=== PATIENT | female | born 1935 | race Caucasian/White ===

== ENCOUNTER 2018-06-13 15:41 | Day surgery (SDC) | payer MEDICARE, BC ==
[2018-06-13] MEDS ORDERED: DIPHENHYDRAMINE HCL 50 MG/ML VIAL ONE (16:55)
[2018-06-13] MEDS ORDERED: ONDANSETRON HCL INJ/PF 4 MG/2 ML SDV ONE (16:55)
[2018-06-13] MEDS ORDERED: EPINEPHRINE INJ 1 MG/10 ML DISP.SYRIN ONE (16:56)
[2018-06-13] MEDS ORDERED: NALOXONE HCL INJ/PF 0.4 MG/1 ML SDV ONE (16:56)
[2018-06-13] MEDS ORDERED: GLUCAGON,HUMAN RECOMB 1 MG INJ ONE (16:56)
[2018-06-13] MEDS ORDERED: FLUMAZENIL INJ 0.5 MG/5 ML VIAL ONE (16:56)
[2018-06-13] MEDS: MIDAZOLAM 2 MG/2 ML INJ ONE ×3 (17:25→17:44)
[2018-06-13] MEDS: FENTANYL CITRATE INJ/PF 100 MCG/2 ML AMPUL ONE ×2 (17:27→17:29)
--- NOTE | 2018-06-13 18:01 | Operative Report ---
Operative Report DATE OF SURGERY: 06/13/18 Operative Report: Pre-op diagnosis: Iron deficiency anemia with abnormal capsule endoscopy. Possible AVMs in the duodenum and proximal jejunum Post-op diagnosis: 1. 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 The upper endoscope was inserted into the esophagus under direct vision and advanced into the stomach. The duodenum was entered and the jejunum was examined up to 20 cm beyond the ligament of Treitz. Endoscope was then slowly pulled out of the patient as the mucosa was examined into details. Patient tolerated procedure well. Findings Esophagus: Normal Antrum: Normal Body: Some oozing was noted from normal-appearing mucosa in the gastric body. There was some altered blood noted in the gastric body as soon as I got into the stomach indicating recent bleed. The spot was cauterized using the APC probe Fundus: Normal Duodenum first part: Normal Duodenum second part: There is small angiodysplasia was noted in the distal duodenum and proximal jejunum. They were both cauterized Plan: Continue to follow CBC OPERATION: .
[2018-06-13 18:51] VITALS: BP 148/73
== END 2018-06-13 18:51 | disposition home or self-care (01) ==
LOC: END 15:41
PROVIDERS: ATTEND Internal Medicine Gastroenterology
DX: K31.82 Dieulafoy lesion (hemorrhagic) of stomach and duodenum (principal); K31.819 Angiodysplasia of stomach and duodenum without bleeding; D50.0 Iron deficiency anemia secondary to blood loss (chronic); I10 Essential (primary) hypertension; M19.90 Unspecified osteoarthritis, unspecified site; Z79.82 Long term (current) use of aspirin; Z79.899 Other long term (current) drug therapy
CPT/HCPCS: 43255; J0171; J1200; J1610; J2250; J2310; J2405; J3010; J3490

== ENCOUNTER 2018-10-26 12:48 | Inpatient (IN) | payer MEDICARE, BC ==
[2018-10-26] MEDS ORDERED: NORMAL SALINE 1000 ML 500 ML IV ONE (13:09)
[2018-10-26] MEDS ORDERED: CEFTRIAXONE INJ 1000 MG VIAL IV ONE (13:10)
--- NOTE | 2018-10-26 13:11 | ER Document Report ---
ED Medical Screen (RME) - General Chief Complaint: Skin Problem Stated Complaint: POSSIBLE INFECTION Time Seen by Provider: 10/26/18 13:05 Primary Care Provider: VERONA HARRY MD [Primary Care Provider] - Follow up as needed Notes: 82 years old female presents today with diffuse psoriasis as well as bluish discoloration of the toes for the last few days. No fever Chills on and off. TRAVEL OUTSIDE OF THE [place] IN LAST 30 DAYS: No - Related Data Allergies/Adverse Reactions: bacitracin [From Neosporin] Allergy (Verified 10/26/18 12:54) swelling gramicidin D [From Neosporin] Allergy (Verified 10/26/18 12:54) swelling neomycin sulfate [From Neosporin] Allergy (Verified 10/26/18 12:54) swelling polymyxin B [From Neosporin] Allergy (Verified 10/26/18 12:54) swelling oxycodone Adverse Reaction (Verified 10/26/18 12:54) Dizziness Past Medical History - Past Medical History Cardiac Medical History: Reports: Hx Hypertension - ON LISINOPRIL Denies: Hx Atrial Fibrillation, Hx Congestive Heart Failure, Hx Coronary Artery Disease, Hx Heart Attack, Hx Hypercholesterolemia, Hx Peripheral Vascular Disease, Hx Heart Murmur Pulmonary Medical History: Reports: Hx Asthma - H/O, NO CURRENT MEDS Denies: Hx Bronchitis, Hx COPD, Hx Pneumonia Neurological Medical History: Denies: Hx Cerebrovascular Accident, Hx Seizures Renal/ Medical History: Denies: Hx End Stage Renal Disease, Hx Kidney Stones, Hx Peritoneal Dialysis Malignancy Medical History: Denies: Hx Leukemia GI Medical History: Reports: Hx Gastroesophageal Reflux Disease - meds x 2 yea rs. Denies: Hx Crohn's Disease, Hx Hiatal Hernia, Hx Irritable Bowel, Hx Liver Failure, Hx Pancreatitis, Hx Ulcer Musculoskeltal Medical History: Reports Hx Arthritis - R SHOULDER, R HIP, Denies Hx Fibromyalgia, Denies Hx Muscular Dystrophy Traumatic Medical History: Reports: Hx Fractures - 2014 fx right hip Infectious Medical History: Denies: Hx HIV Past Surgical History: Reports: Hx Section, Hx Hysterectomy, Hx Orthopedic Surgery. Denies: Hx Appendectomy, Hx Bowel Surgery, Hx Dede cystectomy, Hx Colostomy, Hx Coronary Artery Bypass Graft, Hx Gastric Bypass Surgery, Hx Herniorrhaphy, Hx Tonsillectomy, Hx Tubal Ligation - Immunizations Hx Diphtheria, Pertussis, Tetanus Vaccination: Yes Physical Exam - Vital signs Vitals: Temp Pulse Resp BP Pulse Ox 97.8 F 97 18 142/80 H 100 10/26/18 12:55 10/26/18 12:55 10/26/18 12:55 10/26/18 12:55 10/26/18 12:55 Course - Vital Signs Vital signs: Temp Pulse Resp BP Pulse Ox 97.8 F 97 18 142/80 H 100 10/26/18 12:55 10/26/18 12:55 10/26/18 12:55 10/26/18 12:55 10/26/18 12:55 Doctor's Discharge - Discharge Referrals: VERONA HARRY MD [Primary Care Provider] - Follow up as needed
[2018-10-26 14:03] LABS: ABSOLUTE BASOPHILS # (AUTO) 0.1 10^3/uL (0.0-0.2); ABSOLUTE MONOCYTES (AUTO) 0.8 10^3/uL (0.1-1.4); ABSOLUTE NEUT (AUTO) 6.3 10^3/uL (1.7-8.2); BASOPHILS % (AUTO) 0.6 % (0-2); EOSINOPHILS % (AUTO) 0.6 % (0-6); HEMATOCRIT 36.2 % (36.0-47.0); HEMOGLOBIN 12.4 g/dL (12.0-15.5); LYMPHOCYTES % (AUTO) 12.7 % (13-45); MEAN CORPUSCULAR HEMOGLOBIN 28.8 pg (27.0-33.4); MEAN CORPUSCULAR HGB CONC 34.4 g/dL (32.0-36.0); MEAN CORPUSCULAR VOLUME 84 fl (80-97); MONOCYTES % (AUTO) 9.9 % (3-13); PLATELET COUNT 337 10^3/uL (150-450); RED BLOOD COUNT 4.31 10^6/uL (3.72-5.28); RED CELL DISTRIBUTION WIDTH 14.5 % (11.5-14.0); SEGMENTED NEUTROPHILS % (AUTO) 76.2 % (42-78); TOTAL CELLS COUNTED % (AUTO) 100 %; WHITE BLOOD COUNT 8.2 10^3/uL (4.0-10.5)
[2018-10-26] MEDS ORDERED: VANCOMYCIN HCL INJ 1000 MG VIAL IV ONE (14:15)
[2018-10-26] MEDS ORDERED: GENTAMICIN SULFATE INJ 80 MG/2 ML VIAL IV ONE (14:15)
[2018-10-26 14:21] LABS: ALANINE AMINOTRANSFERASE 20 U/L (9-52); ALBUMIN 4.3 g/dL (3.5-5.0); ALKALINE PHOSPHATASE 87 U/L (38-126); ANION GAP 9 (5-19); ASPARTATE AMINO TRANSFERASE 25 U/L (14-36); BILIRUBIN,DIRECT 0.3 mg/dL (0.0-0.4); BILIRUBIN,TOTAL 0.6 mg/dL (0.2-1.3); BLOOD UREA NITROGEN 27 mg/dL (7-20); CALCIUM 9.3 mg/dL (8.4-10.2); CARBON DIOXIDE 29 mmol/L (22-30); CHLORIDE 96 mmol/L (98-107); GLUCOSE 103 mg/dL (75-110); POTASSIUM 4.6 mmol/L (3.6-5.0); SODIUM 133.9 mmol/L (137-145); TOTAL PROTEIN 7.1 g/dL (6.3-8.2)
[2018-10-26 14:28] LABS: APPEARANCE,URINE SLIGHTLY-CLOUDY; BILIRUBIN,URINE NEGATIVE (NEGATIVE); COLOR,URINE YELLOW; GLUCOSE, URINE NEGATIVE (NEGATIVE); KETONES,URINE NEGATIVE (NEGATIVE); LEUKOCYTE ESTERASE,URINE LARGE (NEGATIVE); NITRITE,URINE POSITIVE (NEGATIVE); PROTEIN,URINE NEGATIVE (NEGATIVE); URINE SPECIFIC GRAVITY 1.009; UROBILINOGEN,URINE NEGATIVE mg/dL (<2.0)
--- NOTE | 2018-10-26 14:35 | ER Document Report ---
ED General - General Chief Complaint: Skin Problem Stated Complaint: POSSIBLE INFECTION Time Seen by Provider: 10/26/18 13:05 Primary Care Provider: VERONA HARRY MD [Primary Care Provider] - Follow up as needed TRAVEL OUTSIDE OF THE [place] IN LAST 30 DAYS: No - HPI Notes: Patient is a 82 year old female that presents to the emergency department for chief complaint of cellulitis. Patient was referred to the emergency room by Dr. Calixto for admission and antibiotics for cellulitis. Patient states that she has had increasing redness and swelling of her lower extremities for the last few weeks. The left has quickly become worse in the right. She notes that over the last week or so she has had swelling on her left arm as well. She states the only area that is idalia thering her is her left lower extremity which she states is painful. She denies any fever, chills, nausea, vomiting, lightheadedness, palpitations and chest pain. She states she is feeling well and has a good appetite. Past Medical History: Hypertension Past Surgical History: IVC filter Social History: Reviewed in chart Family History: Reviewed and noncontributory for presenting illness Allergies: Reviewed, see documented allergy list. REVIEW OF SYSTEMS: CONSTITUTIONAL : No fever No chills No diaphoresis No recent illness EENT: No vision changes No congestion No sore throat CARDIOVASCULAR: No chest pain No palpitations RESPIRATORY: No shortness of breath No cough No difficulty breathing GASTROINTESTINAL: No abdominal pain No nausea No vomiting No diarrhea GENITOURINARY: No dysuria No hematuria No difficulty urinating MUSCULOSKELETAL: No back pain leg pain No arm pain SKIN: rashes No lesions LYMPHATIC: No swollen, enlarged glands. NEUROLOGICAL: No lightheadedness No headache No weakness No paresthesias PSYCHIATRIC: No anxiety No depression PHYSICAL EXAMINATION: Vital signs reviewed, nursing noted reviewed. GENERAL: Well-appearing, well-nourished and in no acute distress. HEAD: Atraumatic, normocephalic. EYES: Eyes appear normal, extraocular movements intact, sclera anicteric, conjunctiva are normal. ENT: nares patent, oropharynx clear without exudates. Moist mucous membranes. NECK: Normal range of motion, supple without lymphadenopathy LUNGS: Breath sounds clear to auscultation bilaterally and equal. No wheezes rales or rhonchi. HEART: Regular rate and rhythm without murmurs ABDOMEN: Soft, nontender, normoactive bowel sounds. No rebound, guarding, or rigidity. No masses appreciated. EXTREMITIES: good range of motion. Left lower extremity tender to palpation with +2 pitting edema. Trace right lower extremity edema, nontender. NEUROLOGICAL: No focal neurological deficits. Moves all extremities spontaneously Motor and sensory grossly intact on exam. PSYCH: Normal mood, normal affect. SKIN: Warm, Dry, normal turgor. Erythematous maculopapular rash to bilateral lower extremities and bilateral forearms. calor of left lower extremity. Left upper and lower extremity greater than right lower and upper extremity. Serous weeping from areas of the rash on all extremities. - Related Data Allergies/Adverse Reactions: bacitracin [From Neosporin] Allergy (Verified 10/26/18 12:54) swelling gramicidin D [From Neosporin] Allergy (Verified 10/26/18 12:54) swelling neomycin sulfate [From Neosporin] Allergy (Verified 10/26/18 12:54) swelling polymyxin B [From Neosporin] Allergy (Verified 10/26/18 12:54) swelling oxycodone Adverse Reaction (Verified 10/26/18 12:54) Dizziness Past Medical History - Social History Smoking Status: Never Smoker Chew tobacco use (# tins/day): No Frequency of alcohol use: None Drug Abuse: None Family History: Reviewed & Not Pertinent Patient has suicidal ideation: No Patient has homicidal ideation: No - Past Medical History Cardiac Medical History: Reports: Hx Hypertension - ON LISINOPRIL Denies: Hx Atrial Fibrillation, Hx Congestive Heart Failure, Hx Coronary Artery Disease, Hx Heart Attack, Hx Hypercholesterolemia, Hx Peripheral Vascular Disease, Hx Heart Murmur Pulmonary Medical History: Reports: Hx Asthma - H/O, NO CURRENT MEDS Denies: Hx Bronchitis, Hx COPD, Hx Pneumonia Neurological Medical History: Denies: Hx Cerebrovascular Accident, Hx Seizures Renal/ Medical History: Denies: Hx End Stage Renal Disease, Hx Kidney Stones, Hx Peritoneal Dialysis Malignancy Medical History: Denies: Hx Leukemia GI Medical History: Reports: Hx Gastroesophageal Reflux Disease - meds x 2 years. Denies: Hx Crohn's Disease, Hx Hiatal Hernia, Hx Irritable Bowel, Hx Liver Failure, Hx Pancreatitis, Hx Ulcer Musculoskeletal Medical History: Reports Hx Arthritis - R SHOULDER, R HIP, Denies Hx Fibromyalgia, Denies Hx Muscular Dystrophy Traumatic Medical History: Reports: Hx Fractures - 2014 fx right hip Infectious Medical History: Denies: Hx HIV Past Surgical History: Reports: Hx Section, Hx Hysterectomy, Hx Ort hopedic Surgery. Denies: Hx Appendectomy, Hx Bowel Surgery, Hx Cholecystectomy, Hx Colostomy, Hx Coronary Artery Bypass Graft, Hx Gastric Bypass Surgery, Hx Herniorrhaphy, Hx Tonsillectomy, Hx Tubal Ligation - Immunizations Hx Diphtheria, Pertussis, Tetanus Vaccination: Yes Hx Pneumococcal Vaccination: 09/12/12 Physical Exam - Vital signs Vitals: Temp Pulse Resp BP Pulse Ox 97.8 F 97 18 142/80 H 100 10/26/18 12:55 10/26/18 12:55 10/26/18 12:55 10/26/18 12:55 10/26/18 12:55 Course - Re-evaluation Re-evalutation: 10/26/18 14:35 Vitals reviewed. Nursing notes reviewed. Patient is afebrile and nontoxic in appearance. She was given vancomycin and gentamicin upon the recommendation of admitting physician Dr. Calixto. Patient has no leukocytosis and is not septic. She does have a large area of cellulitis on her left lower extremity and smaller areas of cellulitis on her remaining extremities. Patient's rash has been increasing more rapidly recently and she is requiring admission for IV antibiotics. Ultrasound of the left lower extremity will be obtained to evaluate for underlying DVT in the setting of asymmetric edema and erythema. 10/26/18 14:52 Patient's lab work shows a mild hyponatremia with a sodium of 133. She is on maintenance fluids currently. She also has a urinary tract infection that will be appropriately treated with antibiotics. I discussed patient's wounds with Dr. Glover, general surgery, upon the request of Dr. Manzo. He will come evaluate the patient to see if she is needing any wound debridement. Patient will be admitted to the hospital in stable condition. She is in agreement with plan of care. Laboratory 10/26/18 10/26/18 10/26/18 13:42 13:42 13:42 WBC 8.2 RBC 4.31 Hgb 12.4 Hct 36.2 MCV 84 MCH 28.8 MCHC 34.4 RDW 14.5 H Plt Count 337 Seg Neutrophils % 76.2 Lymphocytes % 12.7 L Monocytes % 9.9 Eosinophils % 0.6 Basophils % 0.6 Absolute Neutrophils 6.3 Absolute Lymphocytes 1.0 Absolute Monocytes 0.8 Absolute Eosinophils 0.0 Absolute Basophils 0.1 Sodium 133.9 L Potassium 4.6 Chloride 96 L Carbon Dioxide 29 Anion Gap 9 BUN 27 H Creatinine 1.03 Est GFR ( Amer) > 60 Est GFR (Non-Af Amer) 52 L Glucose 103 Lactic Acid 1.1 Calcium 9.3 Total Bilirubin 0.6 Direct Bilirubin 0.3 Neonat Total Bilirubin Not Reportable Neonat Direct Bilirubin Not Reportable Neonat Indirect Bili Not Reportable AST 25 ALT 20 Alkaline Phosphatase 87 Total Protein 7.1 Albumin 4.3 Urine Color Urine Appearance Urine pH Ur Specific [place] Urine Protein Urine Glucose (UA) Urine Ketones Urine Blood Urine Nitrite Urine Bilirubin Urine Urobilinogen Ur Leukocyte Esterase Urine WBC (Auto) Urine RBC (Auto) Urine Bacteria (Auto) Squamous Epi Cells Auto Urine Mucus (Auto) Urine Ascorbic Acid 10/26/18 14:00 WBC RBC Hgb Hct MCV MCH MCHC RDW Plt Count Seg Neutrophils % Lymphocytes % Monocytes % Eosinophils % Basophils % Absolute Neutrophils Absolute Lymphocytes Absolute Monocytes Absolute Eosinophils Absolute Basophils Sodium Potassium Chloride Carbon Dioxide Anion Gap BUN Creatinine Est GFR ( Amer) Est GFR (Non-Af Amer) Glucose Lactic Acid Calcium Total Bilirubin Direct Bilirubin Neonat Total Bilirubin Neonat Direct Bilirubin Neonat Indirect Bili AST ALT Alkaline Phosphatase Total Protein Albumin Urine Color YELLOW Urine Appearance SLIGHTLY-CLOUDY Urine pH 6.0 Ur Specific [place] 1.009 Urine Protein NEGATIVE Urine Glucose (UA) NEGATIVE Urine Ketones NEGATIVE Urine Blood MODERATE H Urine Nitrite POSITIVE H Urine Bilirubin NEGATIVE Urine Urobilinogen NEGATIVE Ur Leukocyte Esterase LARGE H Urine WBC (Auto) 130 Urine RBC (Auto) 3 Urine Bacteria (Auto) 3+ Squamous Epi Cells Auto 1 Urine Mucus (Auto) RARE Urine Ascorbic Acid 20 H - Vital Signs Vital signs: Temp Pulse Resp BP Pulse Ox 97.8 F 97 18 142/80 H 100 10/26/18 12:55 10/26/18 12:55 10/26/18 12:55 10/26/18 12:55 10/26/18 12:55 - Laboratory Result Diagrams: 10/26/18 13:42 10/26/18 13:42 Laboratory results interpreted by me: 10/26/18 10/26/18 10/26/18 13:42 13:42 14:00 RDW 14.5 H Lymphocytes % 12.7 L Sodium 133.9 L Chloride 96 L BUN 27 H Est GFR (Non-Af Amer) 52 L Urine Blood MODERATE H Urine Nitrite POSITIVE H Ur Leukocyte Esterase LARGE H Urine Ascorbic Acid 20 H Discharge - Discharge Clinical Impression: Left leg cellulitis, Left arm cellulitis, Cellulitis of right leg, Right arm cellulitis UTI (urinary tract infection) Qualifiers: Urinary tract infection type: site unspecified Hematuria presence: with hematuria Qualified Code(s): N39.0 - Urinary tract infection, site not specified Condition: Stable Disposition: ADMITTED INPATIENT Admitting Provider: Analia Unit Admitted: Medical Floor Referrals: VERONA HARRY MD [Primary Care Provider] - Follow up as needed
[2018-10-26] MEDS ORDERED: NORMAL SALINE 1000 ML 1,000 ML IV ONE (14:47)
--- NOTE | 2018-10-26 17:22 | XCELERA REPORT ---
[address] [address] Lower Extremity Venous Evaluation Procedure: Color flow and duplex imaging of the veins of the left lower extremity as well as the right Common Femoral vein. Right Sided Venous Evaluation The right common femoral vein is fully compressible. Spontaneous and phasic flow is present in the right common femoral vein. Left Sided Venous Evaluation Irregular lucent,spaces in subcutaneous tissues of the leg, compatible with cellulitis, noted. Normal vessel filling wall to wall, compression and augmentation as well as Colour flow down to the infrageniculate veins. Interpretation Summary No duplex evidence of DVT or obstruction in the left lower extremity nor in the right Common Femoral vein. Localized edema in left leg, compatible with cellulitis,infection. Name: JENNIFER MELENDEZ Age: 82 yrs Gender: Female : 1935 Patient Status: Inpatient Patient Location: [place] [id number] Study Date: 10/26/2018 02:57 PM Reason For Study: leg edema Ordering Physician: LEELA COCHRAN Performed By: Javier Lake : LEELA COCHRAN > Anastacio Castillo
[2018-10-26] MEDS ORDERED: MAGNESIUM HYDROXIDE SUSP 30 ML UDCUP PO PRN (17:29)
[2018-10-26] MEDS ORDERED: ONDANSETRON 4 MG TAB.RAPDIS PO PRN (17:29)
[2018-10-26] MEDS ORDERED: GENTAMICIN SULFATE 0 MG in DEXTROSE 5%-WATER 100 ML IV NR (17:45)
[2018-10-26] MEDS ORDERED: VANCOMYCIN HCL 0 MG in DEXTROSE 5%-WATER 250 ML IV NR (17:45)
--- NOTE | 2018-10-26 17:49 | PDOC H&P ---
History of Present Illness Admission Date/PCP: 10/26/18 14:45 VERONA HARRY MD Patient complains of: Bilateral lower extremity cellulitis with drainage History of Present Illness: JENNIFER MELENDEZ is a 82 year old female Past Medical History Cardiac Medical History: Reports: Hypertension - ON LISINOPRIL Denies: Atrial Fibrillation, Congestive Heart Failure, Coronary Artery Disease, Myocardial Infarction, Hyperlipidema, Peripheral Vascular Disease, Heart Murmur Pulmonary Medical History: Reports: Asthma - H/O, NO CURRENT MEDS Denies: Bronchitis, Chronic Obstructive Pulmonary Disease (COPD), Pneumonia Neurological Medical History: Denies: Seizures Renal/ Medical History: Denies: End Stage Renal Disease Malignancy Medical History: Denies: Leukemia GI Medical History: Reports: Gastroesophageal Reflux Disease - meds x 2 years Denies: Crohn's Disease, Hiatal Hernia Musculoskeltal Medical History: Reports: Arthritis - R SHOULDER, R HIP Denies: Fibromyalgia Hematology: Reports: Anemia Denies: Hemophilia, Sickle Cell Disease Infectious Medical History: Denies: HIV Past Surgical History Past Surgical History: Reports: Section, Hysterectomy, Orthopedic Surgery Denies: Amputation, Appendectomy, Cholecystectomy, Colostomy, Coronary Artery Bypass Graft, Gastric Bypass Surgery, Herniorrhaphy, Tonsillectomy, Tubal Ligation Social History Information Source: Patient Lives with: Alone Smoking Status: Never Smoker Hx Recreational Drug Use: No Hx Prescription Drug Abuse: No Family History Family History: Reviewed & Not Pertinent Parental Family History Reviewed: Yes Children Family History Reviewed: Yes Sibling(s) Family History Reviewed.: Yes Medication/Allergy Home Medications: Ergocalciferol (Vitamin D2) [Drisdol 50,000 unit (1.25MG) Capsule] 50,000 unit PO [id number]@1000 #0 capsule 04/27/16 Psyllium Husk [Metamucil] 660 gm PO DAILY 06/12/18 Ascorbic Acid [Vitamin C] 250 mg PO DAILY 10/26/18 Ferrous Sulfate [Iron] 325 mg PO DAILY 10/26/18 Vitamin E Acetate [Vitamin E] 400 unit PO DAILY 10/26/18 Allergies/Adverse Reactions: bacitracin [From Neosporin] Allergy (Verified 10/26/18 12:54) swelling gramicidin D [From Neosporin] Allergy (Verified 10/26/18 12:54) swelling neomycin sulfate [From Neosporin] Allergy (Verified 10/26/18 12:54) swelling polymyxin B [From Neosporin] Allergy (Verified 10/26/18 12:54) swelling oxycodone Adverse Reaction (Verified 10/26/18 12:54) Dizziness Review of Systems All systems: as per PMH Physical Exam Vital Signs: Temp Pulse Resp BP Pulse Ox 97.8 F 97 23 H 142/80 H 100 10/26/18 12:55 10/26/18 12:55 10/26/18 14:09 10/26/18 12:55 10/26/18 12:55 Intake & Output 10/25/18 10/26/18 10/27/18 06:59 06:59 06:59 Intake Total 500 Balance 500 Weight 50.462 kg General appearance: PRESENT: severe distress Head exam: PRESENT: atraumatic Eye exam: PRESENT: conjunctival injection Neck exam: PRESENT: carotid bruit. ABSENT: JVD Respiratory exam: PRESENT: clear to auscultation michelle Cardiovascular exam: PRESENT: RRR, +S1, +S2 GI/Abdominal exam: PRESENT: normal bowel sounds, soft Extremities exam: PRESENT: calf tenderness, pedal edema, other Musculoskeletal exam: PRESENT: ambulatory Neurological exam: PRESENT: alert, awake Skin exam: PRESENT: erythema, rash, skin tears, vesicles, warm Results Laboratory Results: 10/26/18 13:42 10/26/18 13:42 10/26/18 10/26/18 10/26/18 13:42 13:42 13:42 WBC 8.2 RBC 4.31 Hgb 12.4 Hct 36.2 MCV 84 MCH 28.8 MCHC 34.4 RDW 14.5 H Plt Count 337 Seg Neutrophils % 76.2 Lymphocytes % 12.7 L Monocytes % 9.9 Eosinophils % 0.6 Basophils % 0.6 Absolute Neutrophils 6.3 Absolute Lymphocytes 1.0 Absolute Monocytes 0.8 Absolute Eosinophils 0.0 Absolute Basophils 0.1 Sodium 133.9 L Potassium 4.6 Chloride 96 L Carbon Dioxide 29 Anion Gap 9 BUN 27 H Creatinine 1.03 Est GFR ( Amer) > 60 Est GFR (Non-Af Amer) 52 L Glucose 103 Lactic Acid 1.1 Calcium 9.3 Total Bilirubin 0.6 AST 25 ALT 20 Alkaline Phosphatase 87 Total Protein 7.1 Albumin 4.3 Urine Color Urine Appearance Urine pH Ur Specific [place] Urine Protein Urine Glucose (UA) Urine Ketones Urine Blood Urine Nitrite Ur Leukocyte Esterase Urine WBC (Auto) Urine RBC (Auto) 10/26/18 14:00 WBC RBC Hgb Hct MCV MCH MCHC RDW Plt Count Seg Neutrophils % Lymphocytes % Monocytes % Eosinophils % Basophils % Absolute Neutrophils Absolute Lymphocytes Absolute Monocytes Absolute Eosinophils Absolute Basophils Sodium Potassium Chloride Carbon Dioxide Anion Gap BUN Creatinine Est GFR ( Amer) Est GFR (Non-Af Amer) Glucose Lactic Acid Calcium Total Bilirubin AST ALT Alkaline Phosphatase Total Protein Albumin Urine Color YELLOW Urine Appearance SLIGHTLY-CLOUDY Urine pH 6.0 Ur Specific [place] 1.009 Urine Protein NEGATIVE Urine Glucose (UA) NEGATIVE Urine Ketones NEGATIVE Urine Blood MODERATE H Urine Nitrite POSITIVE H Ur Leukocyte Esterase LARGE H Urine WBC (Auto) 130 Urine RBC (Auto) 3
[2018-10-26] MEDS ORDERED: ENOXAPARIN SODIUM INJ 40 MG/0.4 ML DISP.SYRIN SUBCUT ONE (18:00)
--- NOTE | 2018-10-26 18:08 | PDOC CONSULTATION ---
Consultation Consult Date: 10/26/18 Consult reason:: Diffuse left leg cellulits, distal right leg cellulitis, distal left forearm cellulitis with furunculosis History of Present Illness Admission Date/PCP: 10/26/18 14:45 VERONA HARRY MD Patient complains of: itching right and left leg, and left forearm History of Present Illness: JENNIFER MELENDEZ is a 82 year old female seen in the Er where she presented with a 24 hour hx of itching, redness, and swelling of the left leg, redness and itching of the right distal leg and left distal forearm. Past Medical History Cardiac Medical History: Reports: Hypertension - ON LISINOPRIL Denies: Atrial Fibrillation, Congestive Heart Failure, Coronary Artery Disease, Myocardial Infarction, Hyperlipidema, Peripheral Vascular Disease, Heart Murmur Pulmonary Medical History: Reports: Asthma - H/O, NO CURRENT MEDS Denies: Bronchitis, Chronic Obstructive Pulmonary Disease (COPD), Pneumonia Neurological Medical History: Denies: Seizures Renal/ Medical History: Denies: End Stage Renal Disease Malignancy Medical History: Denies: Leukemia GI Medical History: Reports: Gastroesophageal Reflux Disease - meds x 2 years Denies: Crohn's Disease, Hiatal Hernia Musculoskeltal Medical History: Reports: Arthritis - R SHOULDER, R HIP Denies: Fibromyalgia Hematology: Reports: Anemia Denies: Hemophilia, Sickle Cell Disease Infectious Medical History: Denies: HIV Past Surgical History Past Surgical History: Reports: Section, Hysterectomy, Orthopedic Surgery Denies: Amputation, Appendectomy, Cholecystectomy, Colostomy, Coronary Artery Bypass Graft, Gastric Bypass Surgery, Herniorrhaphy, Tonsillectomy, Tubal Ligation Social History Smoking Status: Never Smoker Hx Recreational Drug Use: No Hx Prescription Drug Abuse: No Family History Family History: Reviewed & Not Pertinent Parental Family History Reviewed: No Children Family History Reviewed: No Sibling(s) Family History Reviewed.: No Medication/Allergy Home Medications: Ergocalciferol (Vitamin D2) [Drisdol 50,000 unit (1.25MG) Capsule] 50,000 unit PO [id number]@1000 #0 capsule 04/27/16 Psyllium Husk [Metamucil] 660 gm PO DAILY 06/12/18 Ascorbic Acid [Vitamin C] 250 mg PO DAILY 10/26/18 Ferrous Sulfate [Iron] 325 mg PO DAILY 10/26/18 Vitamin E Acetate [Vitamin E] 400 unit PO DAILY 10/26/18 Allergies/Adverse Reactions: bacitracin [From Neosporin] Allergy (Verified 10/26/18 12:54) swelling gramicidin D [From Neosporin] Allergy (Verified 10/26/18 12:54) swelling neomycin sulfate [From Neosporin] Allergy (Verified 10/26/18 12:54) swelling polymyxin B [From Neosporin] Allergy (Verified 10/26/18 12:54) swelling oxycodone Adverse Reaction (Verified 10/26/18 12:54) Dizziness Physical Exam Vital Signs: Temp Pulse Resp BP Pulse Ox 97.8 F 97 23 H 142/80 H 100 10/26/18 12:55 10/26/18 12:55 10/26/18 14:09 10/26/18 12:55 10/26/18 12:55 Intake & Output 10/25/18 10/26/18 10/27/18 06:59 06:59 06:59 Intake Total 500 Balance 500 Weight 50.462 kg General appearance: PRESENT: mild distress, thin Head exam: PRESENT: atraumatic Eye exam: PRESENT: EOMI Mouth exam: PRESENT: neck supple Neck exam: PRESENT: full ROM Respiratory exam: PRESENT: clear to auscultation michelle Cardiovascular exam: PRESENT: RRR GI/Abdominal exam: PRESENT: soft Rectal exam: PRESENT: deferred Extremities exam: PRESENT: +2 edema - left leg knee to ankle, other - Left left: diffuse redness with swelling from knee to ankle; right leg: area of circumferencial redness located just above the ankle joint; left fortearm: distal area of redness; skin appears dry, scaly, with furunculi; LLE > RLE due to edema Neurological exam: PRESENT: oriented to person, oriented to situation, reflexes normal Psychiatric exam: PRESENT: anxious Skin exam: PRESENT: other - see above Results Laboratory Results: 10/26/18 13:42 10/26/18 13:42 10/26/18 10/26/18 10/26/18 13:42 13:42 13:42 WBC 8.2 RBC 4.31 Hgb 12.4 Hct 36.2 MCV 84 MCH 28.8 MCHC 34.4 RDW 14.5 H Plt Count 337 Seg Neutrophils % 76.2 Lymphocytes % 12.7 L Monocytes % 9.9 Eosinophils % 0.6 Basophils % 0.6 Absolute Neutrophils 6.3 Absolute Lymphocytes 1.0 Absolute Monocytes 0.8 Absolute Eosinophils 0.0 Absolute Basophils 0.1 Sodium 133.9 L Potassium 4.6 Chloride 96 L Carbon Dioxide 29 Anion Gap 9 BUN 27 H Creatinine 1.03 Est GFR ( Amer) > 60 Est GFR (Non-Af Amer) 52 L Glucose 103 Lactic Acid 1.1 Calcium 9.3 Total Bilirubin 0.6 AST 25 ALT 20 Alkaline Phosphatase 87 Total Protein 7.1 Albumin 4.3 Urine Color Urine Appearance Urine pH Ur Specific [place] Urine Protein Urine Glucose (UA) Urine Ketones Urine Blood Urine Nitrite Ur Leukocyte Esterase Urine WBC (Auto) Urine RBC (Auto) 10/26/18 14:00 WBC RBC Hgb Hct MCV MCH MCHC RDW Plt Count Seg Neutrophils % Lymphocytes % Monocytes % Eosinophils % Basophils % Absolute Neutrophils Absolute Lymphocytes Absolute Monocytes Absolute Eosinophils Absolute Basophils Sodium Potassium Chloride Carbon Dioxide Anion Gap BUN Creatinine Est GFR ( Amer) Est GFR (Non-Af Amer) Glucose Lactic Acid Calcium Total Bilirubin AST ALT Alkaline Phosphatase Total Protein Albumin Urine Color YELLOW Urine Appearance SLIGHTLY-CLOUDY Urine pH 6.0 Ur Specific [place] 1.009 Urine Protein NEGATIVE Urine Glucose (UA) NEGATIVE Urine Ketones NEGATIVE Urine Blood MODERATE H Urine Nitrite POSITIVE H Ur Leukocyte Esterase LARGE H Urine WBC (Auto) 130 Urine RBC (Auto) 3 Assessment & Plan - Diagnosis (1) Cellulitis of right leg Is this a current diagnosis for this admission?: Yes (2) Left arm cellulitis Is this a current diagnosis for this admission?: Yes (3) Left leg cellulitis Is this a current diagnosis for this admission?: Yes - Plan Summary Plan Summary: A/ Diffuse cellulitis of the left leg, distal right leg, and distal left forearm with furunculosis x past 24 hours Moderately severe pruritus of the affected areas Patient has been scratching the cellulitis areas No evidence of cutaneous abscess identified on physical exam or venous Duplex Negative LLE and RLE venous duplex for DVT (see report) P/ No surgical intervention warranted in this patient Medical therapy (IV antibiotics with topical antibiotic ointment) should suffice in controlling the cutaneous infection most likely secondary to a Streptococcal/Staphylococcal infection IV or oral anthystamine agents should assist in alleviating the pruritus (Severino Thorntonyrtec) I am recommending that the patient wear cloth gloves to prevent her from scratching and worsen the areas affected by cellulitis I will sign off; please, call me with questions.
[2018-10-26] MEDS: DOCUSATE SODIUM 100 MG CAPSULE PO SCH (20:08)
[2018-10-27 04:43] LABS: ABSOLUTE EOSINOPHILS # (AUTO) 0.1 10^3/uL (0.0-0.6); ABSOLUTE MONOCYTES (AUTO) 0.8 10^3/uL (0.1-1.4); ABSOLUTE NEUT (AUTO) 2.9 10^3/uL (1.7-8.2); BASOPHILS % (AUTO) 0.9 % (0-2); EOSINOPHILS % (AUTO) 2.7 % (0-6); HEMATOCRIT 31.5 % (36.0-47.0); HEMOGLOBIN 10.9 g/dL (12.0-15.5); LYMPHOCYTES % (AUTO) 20.4 % (13-45); MEAN CORPUSCULAR HEMOGLOBIN 29.1 pg (27.0-33.4); MEAN CORPUSCULAR HGB CONC 34.7 g/dL (32.0-36.0); MEAN CORPUSCULAR VOLUME 84 fl (80-97); MONOCYTES % (AUTO) 16.7 % (3-13); PLATELET COUNT 273 10^3/uL (150-450); RED BLOOD COUNT 3.76 10^6/uL (3.72-5.28); RED CELL DISTRIBUTION WIDTH 14.3 % (11.5-14.0); SEGMENTED NEUTROPHILS % (AUTO) 59.3 % (42-78); TOTAL CELLS COUNTED % (AUTO) 100 %; WHITE BLOOD COUNT 4.9 10^3/uL (4.0-10.5)
[2018-10-27 04:59] LABS: ANION GAP 7 (5-19); BLOOD UREA NITROGEN 21 mg/dL (7-20); CALCIUM 8.5 mg/dL (8.4-10.2); CARBON DIOXIDE 26 mmol/L (22-30); CHLORIDE 102 mmol/L (98-107); GLUCOSE 90 mg/dL (75-110); POTASSIUM 3.9 mmol/L (3.6-5.0); SODIUM 135.4 mmol/L (137-145)
--- NOTE | 2018-10-27 08:26 | PDOC PROGRESS REPORT ---
Subjective Progress Note for:: 10/27/18 Subjective:: The patient states to feel much better. She is still having quite a bit of itching. The wounds look much better Reason For Visit: CELULITIS LEFT LOWER EXTREMITY,CELLULITIS RIGH LOW Physical Exam Vital Signs: Temp Pulse Resp BP Pulse Ox 98.4 F 77 16 121/62 93 10/26/18 23:16 10/26/18 23:16 10/26/18 23:16 10/26/18 23:16 10/26/18 23:16 Intake & Output 10/26/18 10/27/18 10/28/18 06:59 06:59 06:59 Intake Total 732 Balance 732 Weight 37.7 kg General appearance: PRESENT: mild distress Head exam: PRESENT: atraumatic Eye exam: PRESENT: conjunctiva pink Neck exam: PRESENT: carotid bruit. ABSENT: JVD Respiratory exam: PRESENT: clear to auscultation michelle Cardiovascular exam: PRESENT: RRR, +S1, +S2 GI/Abdominal exam: PRESENT: normal bowel sounds, soft Extremities exam: PRESENT: pedal edema, tenderness, other Neurological exam: PRESENT: awake Skin exam: PRESENT: rash, skin tears, vesicles, warm Results Laboratory Results: 10/27/18 04:27 10/27/18 04:27 10/26/18 10/26/18 10/26/18 13:42 13:42 13:42 WBC 8.2 RBC 4.31 Hgb 12.4 Hct 36.2 MCV 84 MCH 28.8 MCHC 34.4 RDW 14.5 H Plt Count 337 Seg Neutrophils % 76.2 Lymphocytes % 12.7 L Monocytes % 9.9 Eosinophils % 0.6 Basophils % 0.6 Absolute Neutrophils 6.3 Absolute Lymphocytes 1.0 Absolute Monocytes 0.8 Absolute Eosinophils 0.0 Absolute Basophils 0.1 Sodium 133.9 L Potassium 4.6 Chloride 96 L Carbon Dioxide 29 Anion Gap 9 BUN 27 H Creatinine 1.03 Est GFR ( Amer) > 60 Est GFR (Non-Af Amer) 52 L Glucose 103 Lactic Acid 1.1 Calcium 9.3 Total Bilirubin 0.6 AST 25 ALT 20 Alkaline Phosphatase 87 Total Protein 7.1 Albumin 4.3 Urine Color Urine Appearance Urine pH Ur Specific [place] Urine Protein Urine Glucose (UA) Urine Ketones Urine Blood Urine Nitrite Ur Leukocyte Esterase Urine WBC (Auto) Urine RBC (Auto) 10/26/18 10/27/18 10/27/18 14:00 04:27 04:27 WBC 4.9 RBC 3.76 Hgb 10.9 L Hct 31.5 L MCV 84 MCH 29.1 MCHC 34.7 RDW 14.3 H Plt Count 273 Seg Neutrophils % 59.3 Lymphocytes % 20.4 Monocytes % 16.7 H Eosinophils % 2.7 Basophils % 0.9 Absolute Neutrophils 2.9 Absolute Lymphocytes 1.0 Absolute Monocytes 0.8 Absolute Eosinophils 0.1 Absolute Basophils 0.0 Sodium 135.4 L Potassium 3.9 Chloride 102 Carbon Dioxide 26 Anion Gap 7 BUN 21 H Creatinine 0.83 Est GFR ( Amer) > 60 Est GFR (Non-Af Amer) > 60 Glucose 90 Lactic Acid Calcium 8.5 Total Bilirubin AST ALT Alkaline Phosphatase Total Protein Albumin Urine Color YELLOW Urine Appearance SLIGHTLY-CLOUDY Urine pH 6.0 Ur Specific [place] 1.009 Urine Protein NEGATIVE Urine Glucose (UA) NEGATIVE Urine Ketones NEGATIVE Urine Blood MODERATE H Urine Nitrite POSITIVE H Ur Leukocyte Esterase LARGE H Urine WBC (Auto) 130 Urine RBC (Auto) 3 Assessment & Plan - Diagnosis (1) Hypertension Qualifiers: Hypertension type: essential hypertension Qualified Code(s): I10 - Essential (primary) hypertension Is this a current diagnosis for this admission?: Yes Plan: Continue current medications (2) Peripheral vascular disease Is this a current diagnosis for this admission?: Yes Plan: Continue leg elevation. (3) Cellulitis of right leg Is this a current diagnosis for this admission?: Yes Plan: Continue local wound care and antibiotics. Awaiting cultures (4) Left arm cellulitis Is this a current diagnosis for this admission?: Yes Plan: Continue local care and antibiotics (5) Left leg cellulitis Is this a current diagnosis for this admission?: Yes Plan: Continue current treatment (6) Right arm cellulitis Is this a current diagnosis for this admission?: Yes Plan: Continue current treatment (7) UTI (urinary tract infection) Qualifiers: Urinary tract infection type: site unspecified Hematuria presence: with hematuria Qualified Code(s): N39.0 - Urinary tract infection, site not specified; R31.9 - Hematuria, unspecified Is this a current diagnosis for this admission?: Yes Plan: We will continue current treatment
[2018-10-27] MEDS: ACETAMINOPHEN 325 MG TABLET PO PRN (08:43)
[2018-10-27] MEDS ORDERED: ERTAPENEM SODIUM 1 GM in NORMAL SALINE 50 ML IV SCH (10:00)
[2018-10-27] MEDS ORDERED: ENOXAPARIN SODIUM INJ 40 MG/0.4 ML DISP.SYRIN SUBCUT SCH (10:00)
[2018-10-27] MEDS ORDERED: GENTAMICIN SULFATE 80 MG in DEXTROSE 5%-WATER 100 ML IV SCH (12:00)
[2018-10-27] MEDS: ENOXAPARIN SODIUM INJ 30 MG/0.3 ML DISP.SYRIN SUBCUT SCH (12:42)
[2018-10-27] MEDS: ERTAPENEM SODIUM 0.5 GM in NORMAL SALINE 50 ML IV SCH (12:43)
[2018-10-27] MEDS: CETIRIZINE 10 MG TABLET PO SCH (12:44)
[2018-10-27] MEDS: MUPIROCIN 2% OINTMENT 22 GM TP SCH ×2 (12:45→21:50)
[2018-10-27] MEDS: DOCUSATE SODIUM 100 MG CAPSULE PO SCH ×2 (12:45→19:23)
[2018-10-27] MEDS: VANCOMYCIN HCL 750 MG in DEXTROSE 5%-WATER 250 ML IV SCH (12:52)
[2018-10-28] MEDS: ACETAMINOPHEN 325 MG TABLET PO PRN (02:55)
[2018-10-28] MEDS: CETIRIZINE 10 MG TABLET PO SCH (12:14)
[2018-10-28] MEDS: VANCOMYCIN HCL 750 MG in DEXTROSE 5%-WATER 250 ML IV SCH (12:14)
[2018-10-28] MEDS: ENOXAPARIN SODIUM INJ 30 MG/0.3 ML DISP.SYRIN SUBCUT SCH (12:14)
[2018-10-28] MEDS: DOCUSATE SODIUM 100 MG CAPSULE PO SCH ×2 (12:14→18:47)
[2018-10-28] MEDS: ERTAPENEM SODIUM 0.5 GM in NORMAL SALINE 50 ML IV SCH (12:14)
[2018-10-28] MEDS: MUPIROCIN 2% OINTMENT 22 GM TP SCH (12:15)
--- NOTE | 2018-10-28 14:45 | PDOC PROGRESS REPORT ---
Subjective Progress Note for:: 10/28/18 Subjective:: Patient is new to me. I am covering for Dr. Helms. This is a very pleasant 82 years old female patient with past medical history of hypertension, bronchial asthma, GERD admitted for bilateral lower extremity cellulitis. Patient has been on ertapenem and vancomycin. Her blood cultures also positive for gram-positive negative bhupinder. This morning I seen patient while sitting on chair. I examined the involved extremities she has papulopustular lesions involving the upper and lower extremities. I switch her vancomycin and ertapenem to Unasyn. I requested repeat blood culture and wound culture. Reason For Visit: CELULITIS LEFT LOWER EXTREMITY,CELLULITIS RIGH LOW Physical Exam Vital Signs: Temp Pulse Resp BP Pulse Ox 98.1 F 80 17 157/77 H 97 10/28/18 12:51 10/28/18 12:51 10/28/18 12:51 10/28/18 12:51 10/28/18 12:51 Intake & Output 10/27/18 10/28/18 10/29/18 06:59 06:59 06:59 Intake Total 732 1710 Output Total 1395 Balance 732 315 Weight 37.7 kg 39.8 kg General appearance: PRESENT: no acute distress Head exam: PRESENT: atraumatic Mouth exam: PRESENT: moist Neck exam: ABSENT: carotid bruit, JVD, lymphadenopathy, thyromegaly Respiratory exam: PRESENT: clear to auscultation michelle. ABSENT: rales, rhonchi, wheezes Cardiovascular exam: PRESENT: RRR. ABSENT: diastolic murmur, rubs, systolic murmur GI/Abdominal exam: PRESENT: normal bowel sounds, soft. ABSENT: distended, guarding, mass, organolmegaly, rebound, tenderness Extremities exam: PRESENT: other - Macular, papular and pustular lesions in volving the upper and lower extremities. Neurological exam: PRESENT: alert, awake, oriented to time, oriented to situation Results Laboratory Results: 10/27/18 04:27 10/27/18 04:27 Assessment & Plan - Diagnosis (1) Bilateral lower leg cellulitis Is this a current diagnosis for this admission?: Yes Plan: Vancomycin and ertapenem switched to Unasyn. (2) Bronchial asthma Is this a current diagnosis for this admission?: Yes Plan: In remission. Continue home medications. (3) Hypertension Is this a current diagnosis for this admission?: Yes Plan: Continue current regimen.
[2018-10-28] MEDS: AMPICILLIN SODIUM/SULBACTAM NA 1.5 GM in NORMAL SALINE 50 ML IV SCH ×2 (15:54→18:47)
[2018-10-29] MEDS: MUPIROCIN 2% OINTMENT 22 GM TP SCH ×3 (00:15→23:35)
[2018-10-29] MEDS: AMPICILLIN SODIUM/SULBACTAM NA 1.5 GM in NORMAL SALINE 50 ML IV SCH ×5 (00:17→23:45)
[2018-10-29] MEDS: CETIRIZINE 10 MG TABLET PO SCH (09:55)
[2018-10-29] MEDS: ENOXAPARIN SODIUM INJ 30 MG/0.3 ML DISP.SYRIN SUBCUT SCH (09:55)
[2018-10-29] MEDS: DOCUSATE SODIUM 100 MG CAPSULE PO SCH ×2 (09:55→17:43)
[2018-10-29 10:30] LABS: VANCOMYCIN,TROUGH 8.5 ug/mL (5.0-20.0)
--- NOTE | 2018-10-29 13:40 | PDOC PROGRESS REPORT ---
Subjective Progress Note for:: 10/29/18 Subjective:: I seen patient resting in bed comfortably. Her cellulitis is improving. Now she has been on Unasyn. Reason For Visit: CELULITIS LEFT LOWER EXTREMITY,CELLULITIS RIGH LOW Physical Exam Vital Signs: Temp Pulse Resp BP Pulse Ox 97.7 F 72 16 129/67 H 95 10/29/18 11:18 10/29/18 11:18 10/29/18 11:18 10/29/18 11:18 10/29/18 11:18 Intake & Output 10/28/18 10/29/18 10/30/18 06:59 06:59 06:59 Intake Total 1710 1060 50 Output Total 1395 875 Balance 315 185 50 Weight 39.8 kg 39.9 kg General appearance: PRESENT: no acute distress Head exam: PRESENT: atraumatic Eye exam: PRESENT: conjunctiva pink Mouth exam: PRESENT: moist Neck exam: ABSENT: carotid bruit, JVD, lymphadenopathy, thyromegaly Respiratory exam: PRESENT: clear to auscultation michelle. ABSENT: rales, rhonchi, wheezes Cardiovascular exam: PRESENT: RRR. ABSENT: diastolic murmur, rubs, systolic murmur GI/Abdominal exam: PRESENT: normal bowel sounds, soft. ABSENT: distended, guarding, mass, organolmegaly, rebound, tenderness Extremities exam: PRESENT: other - Erythema maculopapular and pustular lesions of both legs. Neurological exam: PRESENT: alert, awake, oriented to time, oriented to situation Psychiatric exam: PRESENT: normal mood Results Laboratory Results: 10/27/18 04:27 10/29/18 09:45 10/29/18 09:45 Creatinine 0.84 Est GFR ( Amer) > 60 Est GFR (Non-Af Amer) > 60 Assessment & Plan - Diagnosis (1) Bilateral lower leg cellulitis Is this a current diagnosis for this admission?: Yes Plan: Vancomycin and ertapenem switched to Unasyn. (2) Bronchial asthma Is this a current diagnosis for this admission?: Yes Plan: In remission. Continue home medications. (3) Hypertension Is this a current diagnosis for this admission?: Yes Plan: Continue current regimen.
[2018-10-30] MEDS: AMPICILLIN SODIUM/SULBACTAM NA 1.5 GM in NORMAL SALINE 50 ML IV SCH (05:54)
--- NOTE | 2018-10-30 08:28 | PDOC PROGRESS REPORT ---
Subjective Progress Note for:: 10/30/18 Subjective:: The patient is not happy this morning. She is just waking up. She denies any new symptoms but she does not have any complaints Reason For Visit: CELULITIS LEFT LOWER EXTREMITY,CELLULITIS RIGH LOW Physical Exam Vital Signs: Temp Pulse Resp BP Pulse Ox 97.9 F 74 14 142/70 H 94 10/29/18 23:06 10/29/18 23:06 10/29/18 23:06 10/29/18 23:06 10/29/18 23:06 Intake & Output 10/29/18 10/30/18 10/31/18 06:59 06:59 06:59 Intake Total 1060 1250 Output Total 875 Balance 185 1250 Weight 39.9 kg 42.8 kg General appearance: PRESENT: mild distress Head exam: PRESENT: atraumatic Eye exam: PRESENT: conjunctival injection Respiratory exam: PRESENT: clear to auscultation michelle Cardiovascular exam: PRESENT: RRR, +S1, +S2 GI/Abdominal exam: PRESENT: normal bowel sounds, soft Extremities exam: PRESENT: full ROM Musculoskeletal exam: PRESENT: ambulatory Neurological exam: PRESENT: alert, awake Skin exam: PRESENT: rash, skin tears Results Laboratory Results: 10/27/18 04:27 10/29/18 09:45 10/29/18 09:45 Creatinine 0.84 Est GFR ( Amer) > 60 Est GFR (Non-Af Amer) > 60 Assessment & Plan - Diagnosis (1) Hypertension Qualifiers: Hypertension type: essential hypertension Qualified Code(s): I10 - Essential (primary) hypertension Is this a current diagnosis for this admission?: Yes Plan: Continue current medications (2) Peripheral vascular disease Is this a current diagnosis for this admission?: Yes Plan: Continue leg elevation. (3) Cellulitis of right leg Is this a current diagnosis for this admission?: Yes Plan: Improved. The cultures are so far negative. We will slowly switch to p.o. Keflex (4) Left arm cellulitis Is this a current diagnosis for this admission?: Yes Plan: Continue local care and antibiotics (5) Left leg cellulitis Is this a current diagnosis for this admission?: Yes Plan: States erythema has decreased. There is no drainage. Will switch to p.o. medication (6) Right arm cellulitis Is this a current diagnosis for this admission?: Yes Plan: Continue current treatment (7) UTI (urinary tract infection) Qualifiers: Urinary tract infection type: site unspecified Hematuria presence: with hematuria Qualified Code(s): N39.0 - Urinary tract infection, site not specified; R31.9 - Hematuria, unspecified Is this a current diagnosis for this admission?: Yes Plan: We will continue with current treatment
[2018-10-30] MEDS: LISINOPRIL 10 MG TABLET PO SCH (08:41)
[2018-10-30] MEDS: HYDROCHLOROTHIAZIDE 12.5 MG TABLET PO SCH (08:41)
[2018-10-30] MEDS: ENOXAPARIN SODIUM INJ 30 MG/0.3 ML DISP.SYRIN SUBCUT SCH (09:27)
[2018-10-30] MEDS: CEPHALEXIN 500 MG CAPSULE PO SCH ×2 (09:28→22:56)
[2018-10-30] MEDS: MUPIROCIN 2% OINTMENT 22 GM TP SCH ×2 (09:28→22:57)
[2018-10-30] MEDS: DOCUSATE SODIUM 100 MG CAPSULE PO SCH ×2 (09:28→17:06)
[2018-10-30] MEDS: CETIRIZINE 10 MG TABLET PO SCH (09:28)
[2018-10-31 07:37] VITALS: BP 132/80
[2018-10-31] MEDS: HYDROCHLOROTHIAZIDE 12.5 MG TABLET PO SCH (07:37)
[2018-10-31] MEDS: LISINOPRIL 10 MG TABLET PO SCH (07:37)
--- NOTE | 2018-10-31 08:20 | PDOC DISCHARGE SUMMARY ---
General - Admit/Disc Date/PCP Admission Date/Primary Care Provider: 10/26/18 14:45 VERONA HARRY MD Discharge Date: 10/31/18 - Discharge Diagnosis (1) Hypertension Is this a current diagnosis for this admission?: Yes Summary: Continue current medications (2) Peripheral vascular disease Is this a current diagnosis for this admission?: Yes Summary: Once the wounds have resolved we will need to restart with compression sock (3) Cellulitis of right leg Is this a current diagnosis for this admission?: Yes Summary: Continue current treatment (4) Left arm cellulitis Is this a current diagnosis for this admission?: Yes Summary: Continue current treatment (5) Left leg cellulitis Is this a current diagnosis for this admission?: Yes Summary: Will need a wound clinic follow-up and evaluation (6) Right arm cellulitis Is this a current diagnosis for this admission?: Yes Summary: Continue current treatment (7) UTI (urinary tract infection) Is this a current diagnosis for this admission?: Yes Summary: Continue current medications - Additional Information Discharge Diet: Cardiac Discharge Activity: Activity As Tolerated Prescriptions: Cephalexin Monohydrate [Keflex 500 mg Capsule] 500 mg PO Q12 #10 capsule Mupirocin [Bactroban 2% Ointment 22 gm] 1 applic TP Q12 #60 tube Home Medications: Ergocalciferol (Vitamin D2) [Drisdol 50,000 unit (1.25MG) Capsule] 50,000 unit PO [id number]@1000 #0 capsule 04/27/16 Psyllium Husk [Metamucil] 660 gm PO DAILY 06/12/18 Ascorbic Acid [Vitamin C] 250 mg PO DAILY 10/26/18 Ferrous Sulfate [Iron] 325 mg PO DAILY 10/26/18 Vitamin E Acetate [Vitamin E] 400 unit PO DAILY 10/26/18 Cephalexin Monohydrate [Keflex 500 mg Capsule] 500 mg PO Q12 #10 capsule 10/31/18 Cetirizine HCl [Zyrtec 10 mg Tablet] 10 mg PO DAILY tablet 10/31/18 Hydrochlorothiazide [Hydrodiuril 12.5 mg Tablet] 12.5 mg PO QAM tablet 10/31/18 Lisinopril [Prinivil 10 mg Tablet] 10 mg PO QAM tablet 10/31/18 Mupirocin [Bactroban 2% Ointment 22 gm] 1 applic TP Q12 #60 tube 10/31/18 History of Present Illness History of Present Illness: JENNIFER MELENDEZ is a 82 year old female Hospital Course Hospital Course: The patient was admitted directly from the office with severe diffuse cellulitis most probably consistent with folliculitis particularly of the open wounds of the left lower extremity but also involving the right lower extremity and bilateral upper extremities. She did quite well she was started on IV antibiotics. She was also found to have a urinary tract infection. After several days of wound care and being seen by the surgeon the leg elevation has improved the swelling and the drainage. The local wound care has been provided by the nursing and on the day of discharge she appeared more comfortable Physical Exam Vital Signs: Temp Pulse Resp BP Pulse Ox 97.3 F 91 16 132/80 H 97 10/31/18 07:36 10/31/18 07:36 10/31/18 07:36 10/31/18 07:36 10/31/18 07:36 Intake & Output 10/30/18 10/31/18 11/01/18 06:59 06:59 06:59 Intake Total 1250 903 Balance 1250 903 Weight 42.8 kg 40.2 kg General appearance: PRESENT: no acute distress Head exam: PRESENT: atraumatic Eye exam: PRESENT: conjunctiva pink Neck exam: PRESENT: carotid bruit. ABSENT: JVD Respiratory exam: PRESENT: clear to auscultation michelle Cardiovascular exam: PRESENT: RRR, +S1, +S2 GI/Abdominal exam: PRESENT: normal bowel sounds, soft Extremities exam: PRESENT: full ROM Musculoskeletal exam: PRESENT: ambulatory Neurological exam: PRESENT: alert, awake Skin exam: PRESENT: skin tears Results Laboratory Results: 10/27/18 04:27 10/29/18 09:45 10/28/18 16:45 Leg - Not Specified Gram Stain - Final Qualifiers - * PATIENT BEING DISCHARGED WITH ANY OF THE FOLLOWING DIAGNOSIS: No
[2018-10-31] MEDS: MUPIROCIN 2% OINTMENT 22 GM TP SCH (10:53)
[2018-10-31] MEDS: CEPHALEXIN 500 MG CAPSULE PO SCH (10:54)
[2018-10-31] MEDS: CETIRIZINE 10 MG TABLET PO SCH (10:55)
[2018-10-31] MEDS: ENOXAPARIN SODIUM INJ 30 MG/0.3 ML DISP.SYRIN SUBCUT SCH (10:55)
[2018-10-31] MEDS: DOCUSATE SODIUM 100 MG CAPSULE PO SCH (10:55)
== END 2018-10-31 11:26 | disposition home or self-care (01) | DRG 603 ==
LOC: ER 12:48 → EH 14:45 → 5 19:15
PROVIDERS: ADMIT Internal Medicine; ATTEND Internal Medicine
DX: L03.116 Cellulitis of left lower limb (principal); L03.114 Cellulitis of left upper limb; L03.113 Cellulitis of right upper limb; N39.0 Urinary tract infection, site not specified; L03.115 Cellulitis of right lower limb; I10 Essential (primary) hypertension; I73.9 Peripheral vascular disease, unspecified; K21.9 Gastro-esophageal reflux disease without esophagitis; M19.90 Unspecified osteoarthritis, unspecified site; D64.9 Anemia, unspecified; Z90.710 Acquired absence of both cervix and uterus; Z88.8 Allergy status to other drugs, medicaments and biological substances
CPT/HCPCS: 36415; 80048; 80053; 80202; 81001; 82565; 83605; 85025; 87040; 87070; 87077; 87186; 87205; 93971; 96365; 99284; J0295; J0696; J1335; J1580; J1650; J3370; J3490; J7030; J7060

== ENCOUNTER → 2018-11-22 | Outpatient (CLI) | payer MEDICARE, BC ==
--- NOTE | 2018-11-23 14:00 | XCELERA REPORT ---
[address] [address] Lower Extremity Arterial Evaluation Name: JENNIFER MELENDEZ Age: 82 yrs Gender: Female : 1935 Patient Status: Outpatient Patient Location: [facility] Study Date: 11/22/2018 11:17 AM Procedure: A color flow and duplex scan of the lower extremity arteries was performed bilaterally with velocity and waveform anaylsis. Reason For Study: DECREASED PEDAL PULSE Ordering Physician: TOÑA CASTILLO Performed By: Noemi Varner Measurements and Calculations Right Left PARTNER MANAGEMENT CONSULTANT PSV 96.5 151.5 cm/sec Prox PFA PSV -89.3 -99.9 cm/sec Dist Pop A PSV -47.5 -48.5 cm/sec Mid ESTEBAN PSV -62.9 46.8 cm/sec Mid HAND INSPECTOR PSV 101.5 38.3 cm/sec Tio Pedis PSV 59.0 80.5 cm/sec Right Side Arterial Evaluation Normal velocity and triphasic waveforms noted in the Common Femoral artery . Biphasic with normal velocity, no significant spectral broadening to the infrageniculate vessels Ankle Brachial index not obtained due to discomfort. Left Side Arterial Evaluation Normal velocity and triphasic waveforms noted from the Common Femoral artery to the Anterior Tibial . Biphasic with low normal velocity in the Posterior Tibial. Ankle Brachial index not obtained due to discomfort. Interpretation Summary Findings refect mild changes, at about the Femoral on the right, Posterior Tibial on he left. Mild hemodynamically significant lesions in the bilateral lower extremities, on duplex imaging, at rest. : TOÑA CASTILLO > Toña Castillo
== END ==
LOC: SP 10:55
PROVIDERS: ATTEND Surgery
DX: R09.89 Other specified symptoms and signs involving the circulatory and respiratory systems (principal)
CPT/HCPCS: 93925